=== PATIENT | female | born 2000 | race Two or more races ===

== ENCOUNTER 2024-02-01 08:41 | Emergency (ER) | payer OTHER ==
[~2024-02-01] VITALS: Ht 167.6 cm; Wt 119.3 kg
[2024-02-01] MEDS ORDERED: FOLIC ACID0.8 M1 (08:48)
[2024-02-01] MEDS ORDERED: VITAMIN D375 MCG (08:48)
[2024-02-01 09:42] LABS: HEMATOCRIT 32.4 % (36.0-45.00); HEMOGLOBIN 10.8 g/dL (12.0-15.00); MEAN CELL VOLUME 82.8 fL (80.00-100.00); MEAN CORPUSCULAR HEMOGLOBIN 27.7 pg (27.00-32.0); MEAN CORPUSCULAR HGB CONC 33.4 g/dl (32.0-36.0); PLATELET COUNT 212 K/uL (150-450); RED BLOOD COUNT 3.91 M/uL (4.00-6.00); RED CELL DISTRIBUTION WIDTH 15.8 % (11.5-14.5)
[2024-02-01 10:06] LABS: PARTIAL THROMBOPLASTIN TIME 27.4 SECONDS (22.0-34.0); PROTHROMBIN TIME 10.9 SECONDS (9.0-11.5)
[2024-02-01 10:11] LABS: ALBUMIN 3.5 gm/dL (3.4-5.0); BILIRUBIN TOTAL 0.31 mg/dL (0.3-1.2); CALCIUM 9.2 mg/dL (8.5-10.1); CREATININE SERUM 0.67 mg/dL (0.55-1.02); GFR 108.13; GLOBULINA 4.4 G/DL (2.4-3.5); POTASSIUM 3.73 mEq/L (3.5-5.1); TOTAL PROTEIN 7.9 gm/dL (6.4-8.2)
== END 2024-02-01 17:34 | disposition home or self-care (01) ==
LOC: ER 08:43
PROVIDERS: General Practice
DX: N93.8 Other specified abnormal uterine and vaginal bleeding (principal)

== ENCOUNTER 2024-02-08 06:33 | Day surgery (SDC) | payer OTHER ==
[2024-02-04 09:43] LABS: HEMOGLOBIN 10.8 g/dL (12.0-15.00); MEAN CELL VOLUME 83.7 fL (80.00-100.00); MEAN CORPUSCULAR HEMOGLOBIN 27.3 pg (27.00-32.0); MEAN CORPUSCULAR HGB CONC 32.6 g/dl (32.0-36.0); PLATELET COUNT 220 K/uL (150-450); RED BLOOD COUNT 3.95 M/uL (4.00-6.00); RED CELL DISTRIBUTION WIDTH 15.7 % (11.5-14.5)
[2024-02-04 09:48] LABS: URINE APPEARANCE Clear; URINE BILIRRUBIN Negative (NEGATIVE); URINE BLOOD Small; URINE COLOR Yellow; URINE GLUCOSE Negative (NEGATIVE); URINE KETONE Negative (NEGATIVE); URINE LEUKOCYTE Negative; URINE NITRATE Negative; URINE PROTEIN Negative (NEGATIVE); URINE UROBILINOGEN 0.2 E.U./dl
[2024-02-04 09:50] LABS: URINE BACTERIA 104.5 uL (0.0-1933); URINE RBC 13.5 uL (0.0-20.8); URINE WBC 4.1 uL (0.0-23.2)
[2024-02-04 09:54] LABS: URINE CAST 0.15 uL (0.0-1.40)
[2024-02-04 10:08] LABS: INR 0.99; PARTIAL THROMBOPLASTIN TIME 27.7 SECONDS (22.0-34.0); PROTHROMBIN TIME 10.8 SECONDS (9.0-11.5)
[2024-02-04 10:22] LABS: CALCIUM 9.4 mg/dL (8.5-10.1); CREATININE SERUM 0.64 mg/dL (0.55-1.02); POTASSIUM 4.35 mEq/L (3.5-5.1)
[~2024-02-08 06:33] MED LIST: FOLIC ACID0.8 M1; TREXALL5 MG PO; VITAMIN D375 MCG; [UNRECOGNIZED DRUG - OTHER] IV
[2024-02-08] MEDS ORDERED: POVIDONE-IODINE 118 ML BOTT TOP ONE (14:24)
[2024-02-08] MEDS ORDERED: CEFAZOLIN SODIUM 1,000 MG VIAL ONE (15:32)
== END 2024-02-08 18:40 | disposition home or self-care (01) ==
LOC: CIR.AMB 06:33
PROVIDERS: ATTEND Obstetrics & Gynecology
DX: N93.8 Other specified abnormal uterine and vaginal bleeding (principal)